=== PATIENT | male | born 2000 | race Caucasian/White ===

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

== ENCOUNTER 2018-04-29 10:50 | Observation (INO) | payer OTHER ==
[2018-04-29] MEDS: PERCOCET 5MG/325MG TAB PO (11:38)
[2018-04-29] MEDS ORDERED: PIPERACILLIN/TAZOBACTAM SOD 3.375 GM in D5W MINI-BAG PLUS 50 ML IV (12:30)
[2018-04-29] MEDS: PIPERACILLIN/TAZOBACTAM SOD 3.375 GM in D5W MINI-BAG PLUS 50 ML IV ×2 (12:48→19:15)
[2018-04-29] MEDS: ADACEL/BOOSTRIX VACCINE (DIPHTH/PERTUSS/ACELL/TETANUS)0.5ML SYR (90715) IM (12:49)
[2018-04-29 12:53] LABS: BASO % 0.2 % (0.0-1.0); EOS # 0.1 10^3/uL (0.0-0.50); EOS % 0.8 % (0.0-3.0); HEMATOCRIT 49.9 % (42.0-52.0); HEMOGLOBIN 17.1 g/dl (13.5-17.5); IMMATURE GRANULOCYTE % 0.4 % (0-3.0); LYMPH # 1.5 10^3/uL (1.5-6.5); LYMPH % 13.4 % (24.0-44.0); MEAN CORPUSCULAR HEMOGLOBIN 30.3 pg (27.0-33.0); MEAN CORPUSCULAR HGB CONC 34.3 g/dl (32.0-36.5); MEAN CORPUSCULAR VOLUME 88.5 fl (80.0-96.0); MONO % 8.8 % (0.0-5.0); NEUTROPHILS # 8.4 10^3/uL (1.8-7.7); NEUTROPHILS % 76.4 % (36.0-66.0); PLATELET COUNT, AUTOMATED 163 10^3/uL (150-450); RED BLOOD COUNT 5.64 10^6/uL (4.30-6.10)
[2018-04-29] MEDS: NS 1,000 ML IV (19:50)
[2018-04-29] MEDS: MORPHINE 2 MG/ML 1ML SYRINGE (J2270) IV (20:26)
[2018-04-29] MEDS ORDERED: MORPHINE 4 MG/ML 1ML VIAL/SYRINGE (J2270) IV (21:15)
[2018-04-29] MEDS ORDERED: BISACODYL 10 MG SUPP PR (21:15)
[2018-04-29] MEDS ORDERED: MOM 30ML SUSPENSION UDC PO (21:15)
[2018-04-29] MEDS ORDERED: ACETAMINOPHEN TAB 650MG DOSE (2X325MG) PO (21:15)
[2018-04-29] MEDS: MORPHINE 4 MG/ML 1ML VIAL/SYRINGE (J2270) IV (21:26)
[2018-04-30] MEDS: PIPERACILLIN/TAZOBACTAM SOD 3.375 GM in D5W MINI-BAG PLUS 50 ML IV ×3 (01:10→13:17)
[2018-04-30 06:36] LABS: BASO % 0.5 % (0.0-1.0); EOS # 0.2 10^3/uL (0.0-0.50); EOS % 2.8 % (0.0-3.0); HEMATOCRIT 45.3 % (42.0-52.0); HEMOGLOBIN 15.4 g/dl (13.5-17.5); IMMATURE GRANULOCYTE % 0.2 % (0-3.0); LYMPH # 2.4 10^3/uL (1.5-6.5); LYMPH % 29.1 % (24.0-44.0); MEAN CORPUSCULAR HEMOGLOBIN 30.1 pg (27.0-33.0); MEAN CORPUSCULAR VOLUME 88.6 fl (80.0-96.0); MONO % 11.8 % (0.0-5.0); NEUTROPHILS # 4.5 10^3/uL (1.8-7.7); NEUTROPHILS % 55.6 % (36.0-66.0); PLATELET COUNT, AUTOMATED 147 10^3/uL (150-450); RED BLOOD COUNT 5.11 10^6/uL (4.30-6.10); RED CELL DISTRIBUTION WIDTH 13.2 % (11.5-14.5); WHITE BLOOD COUNT 8.1 10^3/uL (4.0-10.0)
[2018-04-30 06:51] LABS: ANION GAP 8 MEQ/L (8-16); BLOOD UREA NITROGEN 13 MG/DL (7-18); CALCIUM LEVEL 8.7 MG/DL (8.5-10.1); CARBON DIOXIDE LEVEL 27 MEQ/L (21-32); CHLORIDE LEVEL 108 MEQ/L (98-107); CREATININE FOR GFR 0.83 MG/DL (0.70-1.30); GLUCOSE, FASTING 95 MG/DL (70-100); POTASSIUM SERUM 4.4 MEQ/L (3.5-5.1); SODIUM LEVEL 143 MEQ/L (136-145)
[2018-04-30] MEDS: SENOKOT S TAB PO (08:51)
[2018-04-30] MEDS: DOCUSATE SODIUM 100 MG CAP PO (08:51)
[2018-04-30] MEDS: NORCO, ANEXSIA 5/325MG TABLET (HYDROcodone/ACETAMINOPHEN) PO ×2 (10:48→20:49)
[2018-04-30] MEDS ORDERED: LIDOCAINE 2% INJ 100 MG/5 ML SDV (FOR ANES.) As Ordered (16:50)
[2018-04-30] MEDS ORDERED: PROPOFOL 200 MG/20 ML VIAL As Ordered ×2 (16:50→16:51)
[2018-04-30] MEDS ORDERED: MIDAZOLAM INJ 2 MG/2 ML VIAL (J2250) As Ordered (16:51)
[2018-04-30] MEDS ORDERED: fentaNYL 100 MCG/2 ML INJECTION (J3010) As Ordered (16:51)
[2018-04-30] MEDS: LIDOCAINE 1% SDV INJ 30 ML VIAL As Ordered (18:15)
[2018-04-30] MEDS: BUPIVACAINE HCL 0.5% 30 ML VIAL As Ordered (18:15)
[2018-04-30] MEDS ORDERED: PERCOCET 5MG/325MG TAB PO (19:00)
[2018-04-30] MEDS ORDERED: LR 1,000 ML IV (19:00)
[2018-04-30] MEDS ORDERED: fentaNYL 100 MCG/2 ML INJECTION (J3010) IV (19:00)
[2018-04-30] MEDS ORDERED: ONDANSETRON 4MG/2ML VIAL (J2405) IV (19:00)
== END 2018-04-30 21:22 | disposition home or self-care (01) ==
LOC: M MS5PR 04-30 12:47 → M ED 10:50 → M ED INP 21:13
DX: S51.822A Laceration with foreign body of left forearm, initial encounter (principal); W25.XXXA Contact with sharp glass, initial encounter; Y92.89 Other specified places as the place of occurrence of the external cause; F90.2 Attention-deficit hyperactivity disorder, combined type; F91.3 Oppositional defiant disorder; F81.9 Developmental disorder of scholastic skills, unspecified; R01.1 Cardiac murmur, unspecified; Z79.2 Long term (current) use of antibiotics; F17.210 Nicotine dependence, cigarettes, uncomplicated; Z23 Encounter for immunization; Y93.9 Activity, unspecified
CPT/HCPCS: 11042

== ENCOUNTER 2018-05-06 22:20 | Emergency (ER) | payer OTHER | END 2018-05-07 01:43 | disposition left against medical advice (07) | LOC: M ED 22:20 | DX: Z53.21 Procedure and treatment not carried out due to patient leaving prior to being seen by health care provider (principal) ==

== ENCOUNTER 2018-05-07 10:30 | Emergency (ER) | payer OTHER | END 2018-05-07 11:18 | disposition home or self-care (01) | LOC: M ED 10:30 | DX: T81.31XA Disruption of external operation (surgical) wound, not elsewhere classified, initial encounter (principal); Y92.9 Unspecified place or not applicable; Y93.9 Activity, unspecified | CPT/HCPCS: 12001 ==

== ENCOUNTER → 2021-03-12 | Outpatient (CLI) | payer MEDICAID ==
[~2021-03-12] MED LIST: AMOX875T2 PO; BENZ-18 PO; HYDR-3713; HYDR-3715 PO; MUCI600T37 PO
== END ==
LOC: M OUTALCOH 07:41
PROVIDERS: ATTEND Psychiatry & Neurology Psychiatry
DX: F12.20 Cannabis dependence, uncomplicated (principal)

== ENCOUNTER 2021-03-19 16:00 | Outpatient (RCR) | payer MEDICAID | END 2021-03-21 | LOC: M OUTALCOH 16:00 | PROVIDERS: ATTEND Psychiatry & Neurology Psychiatry | DX: F12.20 Cannabis dependence, uncomplicated (principal) ==

== ENCOUNTER 2021-04-18 14:00 | Outpatient (RCR) | payer MEDICAID | END 2021-04-21 | LOC: M OUTALCOH 14:00 | PROVIDERS: ATTEND Psychiatry & Neurology Psychiatry | DX: F12.20 Cannabis dependence, uncomplicated (principal) ==

== ENCOUNTER → 2021-05-22 | Outpatient (RCR) | payer MEDICAID | LOC: M OUTALCOH 04-25 16:41 | PROVIDERS: ATTEND Psychiatry & Neurology Psychiatry | DX: F12.20 Cannabis dependence, uncomplicated (principal) ==

== ENCOUNTER 2021-06-19 15:20 | Outpatient (RCR) | payer MEDICAID | END 2021-06-21 | LOC: M OUTALCOH 15:20 | PROVIDERS: ATTEND Psychiatry & Neurology Psychiatry | DX: F12.20 Cannabis dependence, uncomplicated (principal) ==

== ENCOUNTER 2021-07-17 14:30 | Outpatient (RCR) | payer MEDICAID | END 2021-07-22 | LOC: M OUTALCOH 14:30 | PROVIDERS: ATTEND Psychiatry & Neurology Psychiatry | DX: F12.20 Cannabis dependence, uncomplicated (principal) ==

== ENCOUNTER 2021-08-14 14:44 | Outpatient (RCR) | payer MEDICAID | END 2021-08-21 | LOC: M OUTALCOH 14:44 | PROVIDERS: ATTEND Psychiatry & Neurology Psychiatry | DX: F12.20 Cannabis dependence, uncomplicated (principal) ==

== ENCOUNTER 2021-09-10 08:00 | Outpatient (RCR) | payer MEDICAID | END 2021-09-21 | LOC: M OUTALCOH 08:00 | PROVIDERS: ATTEND Psychiatry & Neurology Psychiatry | DX: F12.20 Cannabis dependence, uncomplicated (principal) ==

== ENCOUNTER 2021-10-12 09:04 | Outpatient (RCR) | payer MEDICAID | END 2021-10-22 | LOC: M OUTALCOH 09:04 | PROVIDERS: ATTEND Psychiatry & Neurology Psychiatry | DX: F12.20 Cannabis dependence, uncomplicated (principal) ==

== ENCOUNTER 2021-10-29 15:03 | Outpatient (RCR) | payer MEDICAID | END 2021-11-19 | LOC: M OUTALCOH 15:03 | PROVIDERS: ATTEND Psychiatry & Neurology Psychiatry | DX: F12.20 Cannabis dependence, uncomplicated (principal) ==

== ENCOUNTER 2021-12-17 10:43 | Outpatient (RCR) | payer MEDICAID | END 2021-12-20 | LOC: M OUTALCOH 10:43 | PROVIDERS: ATTEND Psychiatry & Neurology Psychiatry | DX: F12.20 Cannabis dependence, uncomplicated (principal) ==

== ENCOUNTER 2022-01-18 16:00 | Outpatient (RCR) | payer MEDICAID | END 2022-01-19 | LOC: M OUTALCOH 16:00 | PROVIDERS: ATTEND Psychiatry & Neurology Psychiatry | DX: F12.20 Cannabis dependence, uncomplicated (principal) ==

== ENCOUNTER 2022-01-25 15:09 | Outpatient (RCR) | payer MEDICAID | END 2022-02-19 | LOC: M OUTALCOH 15:09 | PROVIDERS: ATTEND Psychiatry & Neurology Psychiatry | DX: F12.20 Cannabis dependence, uncomplicated (principal) ==

== ENCOUNTER → 2025-06-20 | Outpatient (CLI) | payer MEDICAID ==
[~2025-06-20] MED LIST changes: +HYDR-4571 PO; +IBUP1TAB7 PO
== END ==
LOC: M OUTALCOH 08:24
PROVIDERS: ATTEND Psychiatry & Neurology Psychiatry
DX: F12.20 Cannabis dependence, uncomplicated (principal); F17.200 Nicotine dependence, unspecified, uncomplicated